=== PATIENT | female | born 1965 | race American Indian/Alaskan Native ===

== ENCOUNTER 2016-04-18 06:55 | Day surgery (SDC) | payer MEDICAID ==
[2016-04-18] MEDS ORDERED: NACL 0.9% 1000 ML ONE (07:00)
[2016-04-18] MEDS ORDERED: DIPRIVAN 10 MG/ML IV ONE (07:05)
--- NOTE | 2016-04-18 07:21 | Anesthesia Day of Surgery ---
Anesthesia Day of Surgery - Day of Surgery Patient Examined: Yes Patient H&P Reviewed: Yes Patient is NPO: Yes Beta Blockers: Yes
--- NOTE | 2016-04-18 07:21 | Anesthesia Consultation ---
Anesthesia Consult and Med Hx Date of service: 04/18/16 - Airway Anesthetic Teeth Evaluation: Poor, Chipped ROM Head & Neck: Adequate Mental/Hyoid Distance: Adequate Mallampati Class: Class II Intubation Access Assessment: Probably Good - Pulmonary Exam CTA: Yes - Cardiac Exam Cardiac Exam: RRR - Pre-Operative Health Status ASA Pre-Surgery Classification: ASA2 Proposed Anesthetic Plan: Spinal - Pre-Anesthesia Comment Pre-Anesthesia Comments: h/o CHF - Pulmonary Hx Smoking: Yes (past hx) Hx Asthma: No COPD: No Hx Pneumonia: No - Cardiovascular System Hx Hypertension: Yes (since 2012) - Central Nervous System Hx Psychiatric Problems: No - Endocrine Hx Non-Insulin Dependent Diabetes: Yes - Hematic Hx Anemia: Yes - Other Systems Hx Cancer: Yes (finished chemo 03/2016)
[2016-04-18] MEDS ORDERED: DILAUDID IV PRN (07:22)
[2016-04-18] MEDS ORDERED: ZOFRAN IV PRN (07:22)
[2016-04-18] MEDS ORDERED: CLEOCIN ONE (07:30)
[2016-04-18 07:32] LABS: Hematocrit 22.4 % (30.3-42.9); Hemoglobin 7.1 gm/dl (10.1-14.3); Mean Corpuscular HGB Conc 32 % (30-34); Mean Corpuscular Volume 76 fl (79-97); Platelet Count 256 K/mm3 (140-440); Red Blood Count 2.95 M/mm3 (3.65-5.03); White Blood Count 3.6 K/mm3 (4.5-11.0)
--- NOTE | 2016-04-18 07:34 | Short Stay Summary ---
Short Stay Documentation Date of service: 04/18/16 - History Principal diagnosis: cervicakl cancer H&P: obtained from office Past Medical History: No medical history Past Surgical History: No surgical history Social history: no significant social history - Allergies and Medications Current Medications: Allergies No Known Allergies Allergy (Verified 04/13/16 10:23) Home Medications Medication Instructions Recorded Confirmed Last Taken Type Furosemide [Lasix] 40 mg PO DAILY #30 tablet 03/23/14 04/13/16 04/10/16 08:30 Rx glyBURIDE [Diabeta] 5 mg PO DAILY #60 tablet 06/17/15 04/13/16 04/10/16 08:30 Rx Lisinopril [Zestril TAB] 20 mg PO QDAY 10/10/15 04/13/16 04/10/16 08:30 History metFORMIN [Glucophage] 500 mg PO BID 10/10/15 04/13/16 04/10/16 08:30 History Metoprolol [Lopressor TAB] 25 mg PO DAILY 03/23/16 04/13/16 04/10/16 23:55 History oxyCODONE ER [OxyCONTIN ER TAB] 10 mg PO Q12HR 04/13/16 04/13/16 Unknown History Active Medications Famotidine (Pepcid) 20 mg PO PREOP NR Stop: 04/18/16 12:00 Hydromorphone HCl (Dilaudid) 0.5 mg IV Q10MIN PRN PRN Reason: Pain , Severe (7-10) Stop: 04/21/16 07:23 Metoclopramide HCl (Reglan) 10 mg PO PREOP NR Stop: 04/18/16 12:00 Midazolam HCl (Versed) 2 mg IV PREOP NR Stop: 04/18/16 23:59 - Physical exam General appearance: no acute distress Integumentary: no rash HEENT: Atraumatic Lungs: Clear to auscultation Breasts: deferred Heart: Regular rate Gastrointestinal: normal Female Genitourinary: deferred Rectal Exam: deferred Extremities: no ischemia Neurological: Normal gait - Brief post op/procedure progress note Date of procedure: 04/18/16 Pre-op diagnosis: IIB cervical cancer Post-op diagnosis: same Procedure: EUA, T&O Anesthesia: spinal Findings: partial tumor response Surgeon: IMELDA KEY Estimated blood loss: none Pathology: none - Disposition Condition at discharge: Good Disposition: DC/TX ANOTHER TYPE HEALTHCARE Short Stay Discharge Plan Activity: no restrictions Weight Bearing Status: Non-Weight Bearing Diet: regular Wound: open to air
[2016-04-18 07:36] LABS: Mean Corpuscular Hemoglobin 24 pg (28-32)
[2016-04-18] MEDS ORDERED: WATER FOR IRRIG STERILE IR ONE (07:40)
[2016-04-18] MEDS ORDERED: NACL 0.9% IR ONE (07:40)
[2016-04-18] MEDS ORDERED: CLEOCIN VG ONE (07:40)
[2016-04-18 07:44] LABS: Albumin 3.6 g/dL (3.9-5); Albumin/Globulin Ratio 0.9 %; Alkaline Phosphatase 74 units/L (35-129); Anion Gap 18 mmol/L; BUN/Creatinine Ratio 21.81; Bilirubin,Total 0.2 mg/dL (0.1-1.2); Blood Urea Nitrogen 24 mg/dL (7-17); Calcium 8.5 mg/dL (8.4-10.2); Carbon Dioxide 24 mmol/L (22-30); Chloride 103.1 mmol/L (98-107); Glucose 149 mg/dL (65-100); Magnesium 1.5 mg/dL (1.7-2.3); Potassium 3.8 mmol/L (3.6-5.0); Sodium 141 mmol/L (137-145); Total Protein 7.4 g/dL (6.3-8.2)
[2016-04-18 07:48] LABS: Alanine Aminotransferase < 5 units/L (7-56)
[2016-04-18] MEDS ORDERED: SUBLIMAZE ONE (07:54)
[2016-04-18] MEDS ORDERED: REGLAN PO NR (08:00)
[2016-04-18] MEDS ORDERED: VERSED IV NR (08:00)
[2016-04-18] MEDS ORDERED: PEPCID PO NR (08:00)
[2016-04-18] MEDS ORDERED: ZOFRAN ONE ×2 (08:02→09:17)
[2016-04-18 08:25] LABS: Anisocytosis 3+; Basophils % (Manual) 0 % (0.0-1.8); Blastocytes % (Manual) 0 %
[2016-04-18 08:26] LABS: Diff Status Complete; Elliptocytes 1+; Hypochromasia 1+; Microcytosis 2+; Ovalocytes 1+; Poikilocytosis 2+; Polychromasia 1+; Spherocytes Rare; Tear Drop Cells Few
[2016-04-18] MEDS ORDERED: TORADOL ONE (08:42)
[2016-04-18] MEDS ORDERED: NACL 0.9% 1000 ML 1,000 ML IV SCH (09:00)
--- NOTE | 2016-04-18 09:24 | Post Anesthesia Evaluation ---
- Post Anesthesia Evaluation Patient Participated: Yes Airway Patent: Yes Stable Respiratory Function: Yes Nausea/Vomiting: No Temp > 96.8F: Yes Pain Manageable: Yes Adequeate Hydration: Yes Anesthesia Complications: No Block Receding Appropriately: Not Applicable Patient on Ventilator: No
[2016-04-18 10:07] VITALS: BP 127/54
--- NOTE | 2016-04-18 12:36 | Ultrasound Report ---
ULTRASOUND GUIDANCE INTRAOPERATIVE - TRANSABDOMINAL: HISTORY: Cervical cancer. COMPARISON: 04/11/2016 FINDINGS: Transabdominal ultrasound guidance provided for Dr. Hickey for tandem placement. CONCLUSION: Successful tandem placement under ultrasound guidance. Thank you for the opportunity to participate in this patient's care.
--- NOTE | 2016-04-18 17:14 | Operative Report ---
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 PROCEDURE: Tandem and ovoid insertion. PROCEDURE DETAILS: The patient was placed in dorsal lithotomy position. Examination under anesthesia was performed with findings as described above. The patient was prepped and draped and a Lama catheter was inserted. A 340 mL of normal saline were inserted. The uterus was then sounded to 8 cm by ultrasound. A #3 tandem with the flange at 8 cm was subsequently inserted and appropriate positioning was confirmed by ultrasound. Small ovoids were subsequently inserted and iodoform packing was placed anteriorly and posteriorly. Appropriate geometry was again confirmed and Kerlix bandage was then used to secure the apparatus in place. The patient was cleaned and then taken to the recovery room in stable condition. JOB# [id number] HUSSAIN/RON
== END 2016-04-18 06:56 | disposition home or self-care (01) ==
LOC: OR 06:55
PROVIDERS: ATTEND Radiology Radiation Oncology
DX: C53.9 Malignant neoplasm of cervix uteri, unspecified (principal); I11.0 Hypertensive heart disease with heart failure; I50.9 Heart failure, unspecified; Z87.891 Personal history of nicotine dependence; E11.9 Type 2 diabetes mellitus without complications; D64.9 Anemia, unspecified; Z90.49 Acquired absence of other specified parts of digestive tract; Z98.890 Other specified postprocedural states; Z98.51 Tubal ligation status; Z80.1 Family history of malignant neoplasm of trachea, bronchus and lung; Z80.3 Family history of malignant neoplasm of breast
CPT/HCPCS: 36415; 57155; 76998; 80053; 82962; 83735; 85007; 85025; C2698; J1885; J2250; J2405; J2704; J3010; J7030